=== PATIENT | male | born 1940 | race Caucasian/White ===

== ENCOUNTER 2019-02-21 09:15 | Outpatient (CLI) | payer MEDICARE, BC ==
[2019-02-21 15:50] LABS: Anion Gap 13 mmol/L (10-20); BUN (Urea Nitrogen) 13 mg/dL (8.4-25.7); Calc. Creatinine Clearance 0 mL/min (70-130); Calcium 9.4 mg/dL (7.8-10.44); Carbon Dioxide 26 mmol/L (23-31); Chloride 99 mmol/L (98-107); Estimated GFR-MDRD 49; Glucose 86 mg/dL (83-110); Potassium 3.9 mmol/L (3.5-5.1); Sodium 134 mmol/L (136-145)
== END 2019-02-21 09:16 | disposition home or self-care (01) ==
LOC: LABBT 09:15
PROVIDERS: ATTEND Neurological Surgery
DX: Z01.818 Encounter for other preprocedural examination (principal); M48.061 Spinal stenosis, lumbar region without neurogenic claudication
CPT/HCPCS: 80048; 93005; 93010

== ENCOUNTER 2019-02-28 08:29 | Day surgery (SDC) | payer MEDICARE, BC ==
[2019-02-21 13:24] VITALS: BMI 25.0
[2019-02-28] MEDS ORDERED: Bupivacaine HCl 0.5%/Epinephrine 1:200,000/PF 30 ml Vial ONE (09:42)
[2019-02-28] MEDS ORDERED: Thrombin 5000 UNITS/5 ML VIAL ONE (09:42)
[2019-02-28] MEDS ORDERED: Lidocaine 2% Jelly 5 ML TUBE ONE (10:29)
[2019-02-28] MEDS ORDERED: Fentanyl 100 MCG/2 ML VIAL ONE ×3 (10:29→12:32)
[2019-02-28] MEDS ORDERED: Morphine 4 MG/ML VIAL ONE (12:02)
[2019-02-28] MEDS ORDERED: Morphine 2 MG/ML SYRINGE ONE ×2 (12:09→12:30)
[2019-02-28] MEDS ORDERED: Tamsulosin HCl 0.4 MG CAP ONE (12:09)
--- NOTE | 2019-02-28 12:50 | OP ---
DATE OF PROCEDURE: 02/28/2019 SPIKE MACHINE OPERATOR: Tolu Kay PA-C. INDICATION: Pain. DIAGNOSIS: Lumbar stenosis. PROCEDURES PERFORMED: L4-L5 lumbar decompression. ANESTHESIA: General. DESCRIPTION OF PROCEDURE: The patient was brought into the operating room and placed under general anesthesia. He was flipped from the supine to prone position on the operating room table. A linear incision was planned over L4-L5. After prepping and draping and after an appropriate operative pause, the incision was created. The soft tissues were swept away from midline. Self-retaining retractors were placed to the wound for optimal exposure. After confirming the appropriate level with C-arm fluoroscopy, an Adson rongeur was used to remove the spinous process of L4 along the inferior aspect and L5 along the superior aspect. High-speed cutting drill bit as well as 2, 3 and 4 mm Kerrisons were then used to perform a laminectomy spanning L4-L5. The laminectomy was extended laterally and encompassed the medial aspect of the facet joints in order to decompress the exiting and descending nerve roots. The wound was irrigated. Hemostasis was maintained throughout. The wound was then closed in anatomic layers and a pressure dressing was applied. There were no known procedural complications. Job ID: [id number]
[2019-02-28] MEDS ORDERED: HYDROcodone/Acetaminophen 5/325 mg Tablet ONE (20:28)
== END 2019-02-28 20:40 | disposition home or self-care (01) ==
LOC: SDC 08:29
PROVIDERS: ATTEND Neurological Surgery
PROC: 01NB0ZZ Release Lumbar Nerve, Open Approach (ICD-10-PCS; principal; 2019-02-28)
DX: M48.062 Spinal stenosis, lumbar region with neurogenic claudication (principal); I10 Essential (primary) hypertension; E78.5 Hyperlipidemia, unspecified; I48.91 Unspecified atrial fibrillation; Z87.891 Personal history of nicotine dependence; Z79.01 Long term (current) use of anticoagulants; Z79.899 Other long term (current) drug therapy
CPT/HCPCS: 76000; J0131; J0670; J0690; J2270; J3010